=== PATIENT | female | born 1970 | race Asian ===

== ENCOUNTER 2018-03-21 08:27 | Outpatient (CLI) | payer BC | END 2018-03-21 22:06 | disposition home or self-care (01) | LOC: MAMMO 08:27 | DX: Z12.31 Encounter for screening mammogram for malignant neoplasm of breast (principal) ==

== ENCOUNTER 2019-05-07 09:19 | Outpatient (CLI) | payer BC | END 2019-05-07 19:46 | disposition home or self-care (01) | LOC: MAMMO 09:19 | DX: Z12.31 Encounter for screening mammogram for malignant neoplasm of breast (principal) ==

== ENCOUNTER → 2020-05-18 | Outpatient (CLI) | payer BC, OTHER | LOC: INF 09:00 | PROVIDERS: ATTEND Internal Medicine | DX: Z23 Encounter for immunization (principal) | CPT/HCPCS: 96372 ==

== ENCOUNTER 2020-06-11 08:30 | Outpatient (CLI) | payer BC, OTHER | END 2020-06-11 23:59 | disposition home or self-care (01) | LOC: INF 08:30 | PROVIDERS: ATTEND Internal Medicine | DX: Z23 Encounter for immunization (principal) | CPT/HCPCS: 96372 ==

== ENCOUNTER 2021-06-09 08:33 | Outpatient (CLI) | payer BC | END 2021-06-09 18:56 | disposition home or self-care (01) | LOC: MAMMO 08:33 | PROVIDERS: ATTEND Obstetrics & Gynecology | DX: Z12.31 Encounter for screening mammogram for malignant neoplasm of breast (principal) ==